=== PATIENT | female | born 1980 | race Caucasian/White ===

== ENCOUNTER 2017-10-26 12:25 | Emergency (ER) | payer SELFPAY ==
[2017-10-26] MEDS ORDERED: Tetracaine 0.5% OPHTH SOLN/PF 4 ML BOT ONE (13:30)
[2017-10-26] MEDS ORDERED: Naproxen 500 MG TAB ONE (14:07)
[2017-10-26] MEDS ORDERED: HYDROcodone/Acetaminophen 10/325 mg Tablet ONE (14:07)
[2017-10-26] MEDS ORDERED: Neomycin-Polymyxin-Hc 7.5 ML BOT ONE (14:07)
== END 2017-10-26 14:15 | disposition home or self-care (01) ==
LOC: MADERS 12:25
DX: S05.02XA Injury of conjunctiva and corneal abrasion without foreign body, left eye, initial encounter (principal); X58.XXXA Exposure to other specified factors, initial encounter
CPT/HCPCS: 99283

== ENCOUNTER 2017-12-17 10:53 | Outpatient (CLI) | payer OTHER ==
--- NOTE | 2017-12-17 13:36 | CT ---
CT BRAIN: Date: 12/17/17 HISTORY: Inmate who fell last Saturday with head trauma. FINDINGS: Noncontrast enhanced CT images of brain obtained. The brain is unremarkable. No evidence of intracran ial masses, hemorrhages, strokes, or contusions seen. The ventricles are of normal size. IMPRESSION: Normal CT brain. POS: [facility]
== END 2017-12-17 10:54 | disposition home or self-care (01) ==
LOC: MADCT 10:53
PROVIDERS: ATTEND Family Medicine
DX: S00.93XA Contusion of unspecified part of head, initial encounter (principal)
CPT/HCPCS: 70450

== ENCOUNTER 2018-12-04 17:51 | Emergency (ER) | payer OTHER, SELFPAY ==
--- NOTE | 2018-12-04 19:44 | CT ---
EXAM: CT brain without contrast HISTORY: Syncope; hit head with loss of consciousness COMPARISON: 12/17/2017 TECHNIQUE: Multiple contiguous axial images were obtained and a CT of the brain without contrast. Sag ittal and coronal reformats were performed. FINDINGS: The brain is normal in morphology and attenuation without focal lesions or confluent areas of infarction. There is no evidence of hydrocephalus, intracranial hemorrhage, or extra-axial fluid collection. The calvarium and overlying soft tissues are unremarkable. The visualized paranasal sinuses and masto id air cells are well aerated. IMPRESSION: No evidence of acute intracranial abnormality
[2018-12-04 19:50] LABS: Bilirubin Negative (Negative); Blood, Urine Trace (Negative); Clarity Slightly Cloudy (Clear); Glucose, Urine (Dipstick) Negative (Negative); Leukocyte Moderate (Negative); Nitrite Positive (Negative); Protein, Urine (Dipstick) Negative (Neg-Trace); Specific Gravity, Urine 1.015 (1.005-1.030); Urobilinogen 0.2 mg/dL (0.2-1.0)
[2018-12-04 19:53] LABS: Pregnancy Test - Urine (BHCG) Negative (Negative)
[2018-12-04 19:54] LABS: Pregu Control Background? CLEAR/WHITE (CLR/WHITE); Pregu Control Bar Appear? YES (CONTROL BAR); Specific Gravity 1.015 (1.002-1.036)
[2018-12-04 20:01] LABS: RBC/HPF 0-3 HPF (0-3)
[2018-12-04 20:02] LABS: Bacteria/HPF 2+ HPF (None Seen); Trichomonas/HPF 2+ HPF (None Seen)
[2018-12-04] MEDS ORDERED: metroNIDAZOLE 250 MG TAB ONE (20:35)
[2018-12-04] MEDS ORDERED: Sulfameth/Trimethoprim DS 800-160mg TAB ONE (20:35)
== END 2018-12-04 20:44 ==
LOC: EEVIPCON 17:51 → MADERS 17:51
DX: N39.0 Urinary tract infection, site not specified (principal); A59.01 Trichomonal vulvovaginitis; R55 Syncope and collapse; F17.210 Nicotine dependence, cigarettes, uncomplicated
CPT/HCPCS: 36416; 70450; 81003; 81015; 81025; 93005

== ENCOUNTER 2019-10-14 13:23 | Emergency (ER) | payer SELFPAY ==
[2019-10-14] MEDS ORDERED: Iopamidol 370 76% 100 ML VIAL ONE (13:28)
[2019-10-14] MEDS ORDERED: Ketorolac Tromethamine 30 MG/ML VIAL ONE (13:53)
[2019-10-14 13:54] LABS: Bilirubin Negative (Negative); Blood, Urine Large (Negative); Clarity Cloudy (Clear); Glucose, Urine (Dipstick) Negative (Negative); Leukocyte Trace (Negative); Nitrite Negative (Negative); Protein, Urine (Dipstick) 30 mg/dL (Neg-Trace)
[2019-10-14 14:00] LABS: #Basophils 0.2 thou/uL (0.0-0.2); #Eosinphils 0.1 thou/uL (0.0-0.7); #Lymphocytes 3.3 thou/uL (1.20-3.40); #Monocytes 1.2 thou/uL (0.11-0.59); %Basophils 1.1 % (0.0-1.0); %Eosinophils 0.3 % (0.0-10.0); %Monocytes 7.6 % (0.0-10.0); %Neutrophils 69.9 % (42.0-75.0); Hemoglobin 17.2 g/dL (12.0-16.0); Mean Corpuscular Hemoglobin 29.4 pg (27.0-31.0); Mean Corpuscular Volume 91.9 fL (78.0-98.0); Mean Platelet Volume 9.7 fL (7.4-10.4); Platelet Count 341 thou/uL (130-400); RBC Distribution Width 11.7 % (11.5-14.5); Red Blood Cell (RBC) Count 5.85 mill/uL (4.20-5.40); White Blood Cell (WBC) Count 15.7 thou/uL (4.8-10.8)
[2019-10-14 14:05] LABS: Bacteria/HPF 1+ HPF (None Seen); RBC/HPF Greater than 50 HPF (0-3); Squamous Epithelial 0-3 HPF (0-3)
[2019-10-14 14:07] LABS: BHCG - Serum Negative (NEGATIVE)
[2019-10-14 14:08] LABS: Pregs Control Background? CLEAR/WHITE (CLR/WHITE); Pregs Control Bar Appear? YES (CONTROL BAR)
[2019-10-14 14:11] LABS: ALT (SGPT) 11 U/L (8-55); AST (SGOT) 9 U/L (5-34); Albumin 4.3 g/dL (3.5-5.0); Alkaline Phosphatase 111 U/L (40-110); Anion Gap 17 mmol/L (10-20); BUN (Urea Nitrogen) 12 mg/dL (7.0-18.7); Bilirubin, Total 0.4 mg/dL (0.2-1.2); Calc. Creatinine Clearance 0 mL/min (70-130); Calcium 9.5 mg/dL (7.8-10.44); Carbon Dioxide 25 mmol/L (22-29); Chloride 99 mmol/L (98-107); Estimated GFR-MDRD 81; Globulin 3.4 g/dL (2.4-3.5); Glucose 106 mg/dL (70-105); Lipase 42 U/L (8-78); Potassium 3.6 mmol/L (3.5-5.1); Protein, Total 7.7 g/dL (6.0-8.3); Sodium 137 mmol/L (136-145)
--- NOTE | 2019-10-14 14:36 | CT ---
CT abdomen and pelvis with IV contrast HISTORY: Abdomen pain. FINDINGS: The lung bases are clear. The liver, spleen, kidneys, adrenal glands, and pancreas are unre markable. No enlarged lymph nodes or free fluid. Minimal calcification within the arterial structures. Postoperative changes of right lower quadrant a nd the appearance of prior appendectomy. Urinary bladder is decompressed. No evidence of bowel obstruction or inflammation. Mild degenerative changes lumbar spine. IMPRESSION : No significant abnormalities are demonstrated.
== END 2019-10-14 15:12 | disposition home or self-care (01) ==
LOC: MADERS 13:23
DX: R10.9 Unspecified abdominal pain (principal); R11.2 Nausea with vomiting, unspecified; F31.9 Bipolar disorder, unspecified; F17.210 Nicotine dependence, cigarettes, uncomplicated
CPT/HCPCS: 36415; 74177; 80053; 81003; 81015; 83690; 84703; 85025; 96361; 96374; J1885; Q9967